=== PATIENT | female | born 1965 | race Caucasian/White ===

== ENCOUNTER 2024-12-02 17:51 | Observation (INO) | payer OTHER, SELFPAY ==
[2024-12-02] VITALS (38 sets, daily range): BP systolic 127–209; BP diastolic 84–136; PULSE 65–83; RESP 12–21; TEMP 36.1–36.6; O2SAT 84–97
--- NOTE | 2024-12-02 17:45 | RT.EKG_ITS ---
APPROVED REPORT Exam: Resting ECG Reason for Exam: Chest Pain Patient Location: E HR:73 bpm ECG Measurements Heart Rate 73 AXIS SC 137 P 22 QRSd 110 QRS 50 QT 386 T 28 QTc 426 Conclusion Sinus rhythm, rate 73 No interval abnormalities No STEMI No priors available for comparison
--- NOTE | 2024-12-02 18:13 | W.ED.GENAD ---
Discharge Plan Discharge Details Chief Complaint: Chest Pain Primary Care Provider: Unknown,Unknown ED Provider: Juan C Pizarro Home Meds and New Rx's Prescriptions: No Action atorvastatin [Lipitor] 10 mg tablet 10 mg PO DAILY lisinopril 20 mg tablet 20 mg PO DAILY omeprazole 20 mg capsule,delayed release(DR/EC) 20 mg PO DAILY fluticasone propion-salmeterol [Advair Diskus] 100-50 mcg/dose blister with device 1 inh inhalation BID albuterol sulfate [Ventolin HFA] 90 mcg/actuation HFA aerosol inhaler 1 inh inhalation ONCE hydrocodone bitartrate 10 mg capsule, oral only, ER 12hr 10 mg PO Q12H semaglutide 1 mg/dose (2 mg/1.5 mL) pen injector 1 mg subcut QWEEK HPI General Date/Time Provider Initiated Documentation: 12/02/24 18:11. HPI Narrative: 59 year-old female presents to ED today by EMS with a chief complaint of central chest pain, ongoing for a couple days that she ignored, but worse lasting 45 minutes about 60 minutes prior to arrival. Quality described as crushing heaviness, with radiation to shortness of breath, dizziness, sweating, denies cough/fever, endorses nausea for a couple days, denies syncope. Severity is described as 7/10 at onset, now about a 2-3/10. Palliating factors include 324mg ASA given in triage with improvement. Provoking factors include nothing specific- no strenuous exercise at onset. Events leading up to the incident/Associated Symptoms: Patient denies personal cardiac history, endorses FHx. Patient not anticoagulated. Related Data Home Medications ?Medication ?Instructions ?Recorded ?Confirmed albuterol sulfate 90 mcg/actuation 1 inh inhalation ONCE 09/02/24 12/02/24 aerosol inhaler (Ventolin HFA) Held on 12/02/24. Instructions: Pt Stopped/Never Started atorvastatin 10 mg tablet (Lipitor) 10 mg PO DAILY 09/02/24 12/02/24 Held on 12/02/24. Instructions: Pt Stopped/Never Started fluticasone 100 mcg-salmeterol 50 1 inh inhalation BID 09/02/24 12/02/24 mcg/dose blistr powdr for inhalation (Advair Diskus) Held on 12/02/24. Instructions: Pt Stopped/Never Started hydrocodone bitartrate 10 mg 10 mg PO Q12H 09/02/24 12/02/24 capsule, oral only, extended rel 12 hr Held on 12/02/24. Instructions: Pt Stopped/Never Started lisinopril 20 mg tablet 20 mg PO DAILY 09/02/24 12/02/24 Held on 12/02/24. Instructions: Pt Stopped/Never Started omeprazole 20 mg capsule,delayed 20 mg PO DAILY 09/02/24 12/02/24 release Held on 12/02/24. Instructions: Pt Stopped/Never Started semaglutide 1 mg/dose (2 mg/1.5 1 mg subcut QWEEK 09/02/24 12/02/24 mL) subcutaneous pen injector Held on 12/02/24. Instructions: Pt Stopped/Never Started Allergies Allergy/AdvReac Type Severity Reaction Status Date / Time No Known Allergies Allergy Unverified 12/02/24 18:11 General Stated Complaint: Chest Pain RUSLAN: 3 Review of Systems All systems reviewed & are unremarkable except as noted in HPI and below Exam Narrative Exam Narrative: GENERAL APPEARANCE: Well-nourished, non-toxic, awake and alert, atraumatic, mild acute distress. SKIN: Warm, pale, dry, intact, without rashes/lesions/ulcerations. Has a tiny folliculitis on R anterior quiles- no surrounding erythema HEAD: Normocephalic, atraumatic, normal hair distribution for gender/age. EYES: Normal conjunctiva, no exudates on lids/lashes. ENT: Nares patent, no circumoral cyanosis, no facial swelling NECK: Supple, trachea midline, painless cervical ROM. LUNGS/CHEST: Lungs CTA bilaterally- no rhonchi/rales/wheezes diffusely, non-labored respirations, normal A/P diameter, symmetrical expansion, no chest wall deformity HEART (CV/PV): Regular rate and rhythm without murmur, 2+ peripheral edema without skin changes, no JVD. ABDOMEN: Soft, non-distended, no guarding. MSK: Normal ROM, no swelling/deformity to bilateral UEs or LEs, moving all extremities without weakness, no cyanosis, spine midline without tenderness, normal curvature. NEURO: Mental Status AAOx4 - alert to person, place, time, events No facial droop, no forehead involvement. Motor: No focal weakness - strength 5/5 in bilateral UEs and LEs, proximal and distal, symmetric. Sensory: sensation intact to light touch globally. Gait NT. PSYCH: euthymic, cooperative, pleasant, appropriate speech Course Vital Signs Vital signs: Vital Signs Temperature 36.6 C 12/02/24 18:05 Pulse 80 12/02/24 18:05 Respiratory Rate 20 12/02/24 18:05 Blood Pressure 209/136 H 12/02/24 18:05 Pulse Oximetry 95 12/02/24 18:05 Temperature 36.6 C 12/02/24 18:05 Pulse 80 12/02/24 18:05 Respiratory Rate 20 12/02/24 18:05 Blood Pressure 209/136 H 12/02/24 18:05 Blood Pressure Position Sitting 12/02/24 18:05 Pulse Oximetry 95 12/02/24 18:05 Oxygen Delivery Method Room Air 12/02/24 18:05 Oxygen Flow Rate 0 12/02/24 18:05 Medical Decision Making This dictation utilizes [id number] dictation software and may contain unedited grammatical errors. 59 year-old female presents to ED today by EMS with a chief complaint of central chest pain, ongoing for a couple days that she ignored, but worse lasting 45 minutes about 60 minutes prior to arrival. Quality described as crushing heaviness, with radiation to shortness of breath, dizziness, sweating, denies cough/fever, endorses nausea for a couple days, denies syncope. Severity is described as 7/10 at onset, now about a 2-3/10. Palliating factors include 324mg ASA given in triage with improvement. Provoking factors include nothing specific- no strenuous exercise at onset. Events leading up to the incident/Associated Symptoms: Patient denies personal cardiac history, endorses FHx. Patients' medical history: Patient states hypertension, diabetes, high cholesterol, obesity. Family and social history: Endorses family history of heart attacks, lives at home independently, eats a normal diet, no exercise regimen. Pertinent exam findings / vital signs include benign cardiopulmonary exam, the profound hypertension in triage had resolved by the time of patient roomed in ED, neuro intact, benign abdomen. Differential / pathologies of concern include ACS, PE, costochondritis, pleurisy, pneumothorax, demand ischemia, pneumonia, nonpitting 2+ edema in bilateral lower extremities, no skin changes. Diagnostic studies of: -CBC, CMP, lactate, lipase, BNP, serial troponins, magnesium, D-dimer, EKG, CTA chest PE study - CBC completely unremarkable, no leukocytosis, no anemia, no left shift - Lactate negative at 1.3 - CMP shows hypokalemia of 3.2 without EKG changes - Magnesium within normal limits - BNP negative - Serial troponins stable at 6 with reliable onset - Lipase negative - D-dimer 1280, refluxing to CTA chest - CTA chest shows [ ] - EKG on arrival shows sinus rhythm at 73 bpm with P waves filled by narrow complex QRS with normal axis, good R wave progression, no ST elevations or reciprocal depressions and no T wave abnormalities, normal QTc, consistent with priors Interventions of: -324mg CH ASA, 0.4mg nitro SL PRN- 1 dose given. HEART Score: 4 - moderate - consulting with hospitalist service for admission- ECHO & Stress available tomorrow in-patient. Patient is out of many medications without a PCP and on a 90-day wait at [facility] - Discussed with Hospitalist Dr. Caballero at 2145, accepted for admission. ED Course/Assessment/Plan: 59-year-old female presents with chest pain for couple days, having severe chest pain with diaphoresis and dizziness and shortness of breath today for about 45 minutes that relieved with aspirin and nitroglycerin, she recently moved to the area and has multiple risk factors including obesity, hypercholesterolemia, hypertension, obesity, she is out of multiple medications and has no primary care established, her heart score is 4 and she can get an echocardiogram and stress test tomorrow as well as get her home medications sorted out, Dr. Caballero accepted for admission at 2200. Disposition of Chest Pain of Uncertain Etiology. Patient verbalized understanding of the plan and return to ED criteria and engaged in shared decision making. Medical Records Medical records reviewed: Yes I reviewed the patient's medical records. Imaging Data Radiologic Study: Attestation: I personally reviewed and interpreted this imaging study as follows: Imaging: CT Scan Radiologist's impression: Exam: CTA Chest With Contrast Exam date and time: 12/02/2024 7:55 PM Age: 59 years old Clinical indication: Other: Chest pain, elev d-dimer TECHNIQUE: Imaging protocol: Computed tomographic angiography of the chest with contrast. Exam focused on the arteries. 3D rendering (Not supervised by radiologist): MIP and/or 3D reconstructed images were created by the technologist. Contrast material: OMNIPQUE 350; Contrast volume: 100 ml; Contrast route: INTRAVENOUS (IV); COMPARISON: No relevant prior studies available. FINDINGS: Limitations: Extensive streak artifact, created at least in part by arm positioning. Pulmonary arteries: No pulmonary embolism identified. Aorta: No thoracic aortic aneurysm or dissection. Thyroid: Thyroid gland partially excluded from view but grossly unremarkable through its visualized portion. Lungs: Lung najera somewhat obscured by artifact from breathing motion. No gross focal pulmonary consolidation. Diffuse hazy density throughout both lungs, probably an artifactual appearance created by imaging at low lung volumes. Pleural spaces: No pleural effusion or pneumothorax. Heart: Mildly enlarged heart. Mild coronary artery calcification. Lymph nodes: Calcified left hilar lymph nodes suggesting a prior granulomatous infection. Bones/joints: Lower ribs partially excluded from view and incompletely evaluated. Otherwise, no acute fracture seen among the bones of the chest. Soft tissues: No gross soft tissue mass or fluid collection seen in the chest wall. IMPRESSION: 1. No active disease is seen in the chest. 2. Mildly enlarged heart with mild coronary artery calcification. Dictated and Authenticated by: Micky Williamson MD. Lab Data Lab results reviewed: Yes I reviewed the patient's lab results. Labs: Laboratory Tests Range/Units 12/02/24 12/02/24 12/02/24 18:58 20:10 21:56 WBC (4.4-10.8) 10^3/uL 5.45 RBC (3.93-5.22) 10^6/uL 5.18 Hgb (11.2-15.7) g/dL 14.2 Hct (36.0-46.0) % 44.5 MCV (80-95) fL 86 MCH (27.0-33.0) pg 27.4 MCHC (32.0-36.0) % 31.9 L RDW (11.7-14.6) % 13.2 Plt Count (130-400) 10^3/uL 248 MPV (8.0-11.0) fL 9.4 Immature Gran % % 0.2 Neutrophils % % 55.9 Lymphocytes % % 31.6 Monocytes % % 7.3 Eosinophils % % 4.6 Basophils % % 0.4 Nucleated RBC % (0.0-0.3) % 0.0 Absolute Neutrophils (1.2-6.7) 10^3/uL 3.05 Absolute Lymphocytes (1.2-3.4) 10^3/uL 1.72 Absolute Monocytes (0.1-0.8) 10^3/uL 0.40 Absolute Eosinophils (0.0-0.7) 10^3/uL 0.25 Absolute Basophils (0.0-0.2) 10^3/uL 0.02 D-Dimer (<500) ng/mlFEU 1280 H VBG Lactate (<or=2.0) mmol/L 1.3 Sodium (136-145) mmol/L 139 Potassium (3.5-5.1) mmol/L 3.2 L Chloride (98-107) mmol/L 101 Carbon Dioxide (21.0-32.0) mmol/L 28.5 Anion Gap (3-11) mmol/L 9.5 BUN (7-18) mg/dL 8 Creatinine (0.55-1.02) mg/dL 0.7 Est GFR (CKD-EPI 2020) (mL/min/1.73m2) 98.95 Glucose (74-106) mg/dL 155 H Calcium (8.5-10.1) mg/dL 8.8 Magnesium (1.8-2.4) mg/dL 1.9 Total Bilirubin (0.2-1.0) mg/dL 1.0 AST (15-37) U/L 42 H ALT (14-59) U/L 58 Alkaline Phosphatase (46-116) U/L 138 H Troponin I (<or=51) ng/L 6 6 Cancelled NT-Pro-B Natriuret Pep (<300) pg/mL 37 Total Protein (6.4-8.2) g/dL 8.0 Albumin (3.4-5.0) g/dL 3.4 Lipase (<78) U/L 39 PFSH Social History Smoking risk assessment performed?: No
[2024-12-02] MEDS: Aspirin 81 MG CHEW 324 MG CH (19:04)
[2024-12-02 19:07] LABS: Abs Immature Grans 0.01 10^3/uL (0.0-0.06); HCT 44.5 % (36.0-46.0); HGB 14.2 g/dL (11.2-15.7); Immature Grans % 0.2 %; MCH 27.4 pg (27.0-33.0); MCHC 31.9 % (32.0-36.0); MCV 86 fL (80-95); MPV 9.4 fL (8.0-11.0); Platelet Count 248 10^3/uL (130-400); RBC 5.18 10^6/uL (3.93-5.22); RDW 13.2 % (11.7-14.6); RDW-SD 41.1 fL; WBC 5.45 10^3/uL (4.4-10.8)
[2024-12-02] MEDS: nitroGLYcerin 0.4 MG TAB SL (19:11)
--- NOTE | 2024-12-02 19:30 | DI.CT_ITS ---
Exam(s) CT CHEST PE CTA EXAM: CT CHEST PE CTA CLINICAL HISTORY: chest pain, elev d-dimer. TECHNIQUE: Imaging Protocol: Axial CT angiography was performed with multi- slice acquisition and multi-planar and/or 3D reconstructions. Lung Computer Aided Detection (CAD) was utilized. CONTRAST MATERIAL: Intravenous: Omnipaque 350 contrast volume:100 mL COMPARISON: No exams were available for comparison FINDINGS: Tracheobronchial tree: Patent where visualized. No bronchiectasis. Pulmonary parenchyma: There are low lung volumes. There are no focal consolidations or pulmonary nodules present. Pulmonary Arteries: No evidence of filling defect to suggest pulmonary emboli. Mediastinum and Lula: No dominant adenopathy or fluid collection. The esophagus is unremarkable. There are calcified lymph nodes in the left hilum. Visualized thyroid gland: Unremarkable. Pleura: No effusion or pneumothorax. Heart: Heart size is at the upper limits of normal. Three vessel coronary artery calcification is present. No pericardial effusion. Aorta: The ascending thoracic aorta measures 4 x 3.8 cm. Atherosclerotic calcification is present. No evidence of dissection. Upper abdomen: Unremarkable. Soft tissues: Unremarkable. Bones: Within normal limits for the patient's age. IMPRESSION: 1. No evidence of pulmonary embolism, thoracic aortic dissection or aneurysm. 2. The preliminary [facility] report was reviewed. RADIATION DOSE DELIVERED: 167.46mGy.cm Total DLP DATA REPOSITORY: All CT scans at this facility are submitted to the National Radiology Data Registry (NRDR) Dose Index Registry (DIR) with the [employer] (ACR). RADIATION OPTIMIZATION: All CT scans at this facility use at least one of these dose optimization techniques: automated exposure control; mA and/or kV adjustment per patient size (includes targeted exams where dose is matched to clinical indication); or iterative reconstruction.
[2024-12-02 19:31] LABS: ALT 58 U/L (14-59); AST 42 U/L (15-37); Albumin 3.4 g/dL (3.4-5.0); Alkaline Phosphatase 138 U/L (46-116); Anion Gap 9.5 mmol/L (3-11); BUN 8 mg/dL (7-18); Bilirubin, Total 1.0 mg/dL (0.2-1.0); CO2 28.5 mmol/L (21.0-32.0); Calcium 8.8 mg/dL (8.5-10.1); Chloride 101 mmol/L (98-107); Estimated GFR 98.95 (mL/min/1.73m2); Glucose 155 mg/dL (74-106); Lipase 39 U/L (<78); Magnesium 1.9 mg/dL (1.8-2.4); NT-proBNP 37 pg/mL (<300); Potassium 3.2 mmol/L (3.5-5.1); Sodium 139 mmol/L (136-145); Total Protein 8.0 g/dL (6.4-8.2); Troponin I 6 ng/L (<or=51)
[2024-12-02 19:35] LABS: D-Dimer 1280 ng/mlFEU (<500)
[2024-12-02] MEDS: Potassium Chloride 20 MEQ TABCR 40 MEQ PO (19:42)
[2024-12-02] MEDS: Normal Saline - Diluent 50 ML VIAL IJ (19:55)
[2024-12-02] MEDS: Omnipaque 350 MG/ML 100 ML BTL IJ (19:55)
[2024-12-02] MEDS: Normal Saline Flush 10 ML SYR IVP (19:56)
[2024-12-02 20:31] LABS: Troponin I 6 ng/L (<or=51)
--- NOTE | 2024-12-02 20:38 | DI.[facility]_ITS ---
PROCEDURE INFORMATION: Exam: CTA Chest With Contrast Exam date and time: 12/02/2024 7:55 PM Age: 59 years old Clinical indication: Other: Chest pain, elev d-dimer TECHNIQUE: Imaging protocol: Computed tomographic angiography of the chest with contrast. Exam focused on the arteries. 3D rendering (Not supervised by radiologist): MIP and/or 3D reconstructed images were created by the technologist. Contrast material: OMNIPQUE 350; Contrast volume: 100 ml; Contrast route: INTRAVENOUS (IV); COMPARISON: No relevant prior studies available. FINDINGS: Limitations: Extensive streak artifact, created at least in part by arm positioning. Pulmonary arteries: No pulmonary embolism identified. Aorta: No thoracic aortic aneurysm or dissection. Thyroid: Thyroid gland partially excluded from view but grossly unremarkable through its visualized portion. Lungs: Lung najera somewhat obscured by artifact from breathing motion. No gross focal pulmonary consolidation. Diffuse hazy density throughout both lungs, probably an artifactual appearance created by imaging at low lung volumes. Pleural spaces: No pleural effusion or pneumothorax. Heart: Mildly enlarged heart. Mild coronary artery calcification. Lymph nodes: Calcified left hilar lymph nodes suggesting a prior granulomatous infection. Bones/joints: Lower ribs partially excluded from view and incompletely evaluated. Otherwise, no acute fracture seen among the bones of the chest. Soft tissues: No gross soft tissue mass or fluid collection seen in the chest wall. IMPRESSION: 1. No active disease is seen in the chest. 2. Mildly enlarged heart with mild coronary artery calcification. Dictated and Authenticated by: Micky Williamson MD. Orderin Juarez Irizarry MD
--- NOTE | 2024-12-02 22:09 | W.PM.HP.N ---
Date of service: 12/02/24 Time of Service: 22:09 Assessment and Plan Assessment and plan (1) Coronary arteriosclerosis: Status: Acute Assessment and plan: Patient does appear to have coronary artery disease but no ACS mentioned above. Will order stress test for tomorrow and will risk stratify. Restarted her home meds. Patient was on lisinopril and this has been reinitiated (2) Diabetes: Status: Chronic Assessment and plan: A1c has been ordered. Depending on the results we will determine further care. Patient could benefit from a nutrition consult while she is here. No UA was done so cannot check proteinuria will order that. (3) Dyslipidemia: Status: Acute Assessment and plan: Patient was on statin we will check a cholesterol level and will reinitiate her medications (4) CVA (cerebral vascular accident): Status: Chronic Assessment and plan: Patient does have a remote history of a CVA with deficits. Patient does not take aspirin or Plavix. Consider neurology consultation in the outpatient setting. (5) Edema: Status: Acute Assessment and plan: Lower extremity edema bilaterally lower BNP and echocardiogram. History of Present Illness History of Present Illness Chief Complaint: chest pain Narrative: This is a 59-year-old female who was recently admitted to [facility] for bilateral presents with a 3-day history of substernal chest pain that radiates to her back. Patient was rating the pain out 8 out of 10 but states the pain almost completely resolved when patient was given nitro. Patient is currently in no pain. While she was having chest pain she did report some diaphoresis as well. Patient states she has never had an echocardiogram, stress test, or cath. Patient did have a stroke approximately 40 years ago and does continue to have left upper and lower deficits. Patient does not take any blood thinners as she states my blood is thin. Patient denies any history of tobacco alcohol or drugs. She does have a history of dyslipidemia but has not been taking any of her medicines for over 90 days. Patient also has a history of asthma for which she takes inhalers. Patient is a full code. In reviewing her chart she was noted to have hypokalemia and did have an elevated D-dimer at 1280. CT of the chest did not show any pulmonary emboli. Troponins were negative x 2 today. EKG did not show any signs of AMI. PFSH All Active Problems (Updated 12/02/24 @ 22:18 by Ko Caballero MD) Edema (Acute) CVA (cerebral vascular accident) (Chronic) Dyslipidemia (Acute) Diabetes (Chronic) Coronary arteriosclerosis (Acute) Social History Smoking risk assessment performed?: No Meds Allergies and Home Medications Allergies Allergy/AdvReac Type Severity Reaction Status Date / Time No Known Allergies Allergy Unverified 12/02/24 18:11 Home Medications ?Medication ?Instructions ?Recorded ?Confirmed ?Type albuterol sulfate 90 mcg/actuation 1 inh inhalation ONCE 09/02/24 12/02/24 History aerosol inhaler (Ventolin HFA) Held on 12/02/24. Instructions: Pt Stopped/Never Started atorvastatin 10 mg tablet (Lipitor) 10 mg PO DAILY 09/02/24 12/02/24 History Held on 12/02/24. Instructions: Pt Stopped/Never Started fluticasone 100 mcg-salmeterol 50 1 inh inhalation BID 09/02/24 12/02/24 History mcg/dose blistr powdr for inhalation (Advair Diskus) Held on 12/02/24. Instructions: Pt Stopped/Never Started hydrocodone bitartrate 10 mg 10 mg PO Q12H 09/02/24 12/02/24 History capsule, oral only, extended rel 12 hr Held on 12/02/24. Instructions: Pt Stopped/Never Started lisinopril 20 mg tablet 20 mg PO DAILY 09/02/24 12/02/24 History Held on 12/02/24. Instructions: Pt Stopped/Never Started omeprazole 20 mg capsule,delayed 20 mg PO DAILY 09/02/24 12/02/24 History release Held on 12/02/24. Instructions: Pt Stopped/Never Started semaglutide 1 mg/dose (2 mg/1.5 1 mg subcut QWEEK 09/02/24 12/02/24 History mL) subcutaneous pen injector Held on 12/02/24. Instructions: Pt Stopped/Never Started Exam Narrative Exam Narrative: HEENT-normocephalic atraumatic mucous membranes moist Neck-no lymphadenopathy no JVD no thyromegaly Cardiovascular-regular rate and rhythm no murmurs gallops Lungs-clear to auscultation bilaterally no accessory muscle use Abdomen-protuberant Extremities-1+ lower extremity edema bilaterally Neurologic-cranial nerves III through XII are intact as tested with the exception of mild left facial asymmetry 0 out of 5 in the left upper and left lower EXTR extremities left upper extremity in decorticate posture Psych-alert and oriented x 3 Results Labs 12/02/24 18:58 12/02/24 18:58 Labs: Laboratory Results - last 24 hr 12/02/24 12/02/24 12/02/24 18:58 20:10 21:56 WBC 5.45 RBC 5.18 Hgb 14.2 Hct 44.5 MCV 86 MCH 27.4 MCHC 31.9 L RDW 13.2 Plt Count 248 MPV 9.4 Immature Gran % 0.2 Neutrophils % 55.9 Lymphocytes % 31.6 Monocytes % 7.3 Eosinophils % 4.6 Basophils % 0.4 Nucleated RBC % 0.0 Absolute Neutrophils 3.05 Absolute Lymphocytes 1.72 Absolute Monocytes 0.40 Absolute Eosinophils 0.25 Absolute Basophils 0.02 D-Dimer 1280 H VBG Lactate 1.3 Sodium 139 Potassium 3.2 L Chloride 101 Carbon Dioxide 28.5 Anion Gap 9.5 BUN 8 Creatinine 0.7 Est GFR (CKD-EPI 2020) 98.95 Glucose 155 H Calcium 8.8 Magnesium 1.9 Total Bilirubin 1.0 AST 42 H ALT 58 Alkaline Phosphatase 138 H Troponin I 6 6 Cancelled NT-Pro-B Natriuret Pep 37 Total Protein 8.0 Albumin 3.4 Lipase 39 Last Vital Signs Temp 36.6 C 12/02/24 18:05 Pulse 71 12/02/24 21:50 Resp 17 12/02/24 21:50 BP 161/95 H 12/02/24 21:46 Pulse Ox 97 12/02/24 21:50 Time Spent Time spent with Patient: 40-54 minutes Time was spent: preparing to see the patient(eg.review tests), obtaining and/or reviewing separately otained hiistory, ordering medications,tests, procedures, referring, communicating with other health career services manager, indepentently interpreting results, counseling the patient and care coordination
--- NOTE | 2024-12-02 22:41 | W.PC.ACHO ---
Registration Status: REG ER Primary Language: Preferred Language: ED Information & Data Chief Complaint Chest Pain 12/02/24 18:15 Triage Note 7 of 10 crushing chest pain 12/02/24 18:05 in center of chest radiating to back. Pain started 4 days ago but got substantially worse approx 1700 tonight. No cardiac Hx. Pitting bipedal edema. Most Recent Vital Signs Temperature 36.6 C 12/02/24 18:05 Pulse 71 12/02/24 21:50 Pulse 69 12/02/24 21:50 Respiratory Rate 17 12/02/24 21:50 Blood Pressure 161/95 H 12/02/24 21:46 Blood Pressure Mean 114 12/02/24 21:46 Blood Pressure Position Sitting 12/02/24 18:05 Pulse Oximetry 97 12/02/24 21:50 Oxygen Delivery Method Room Air 12/02/24 18:05 Oxygen Flow Rate 0 12/02/24 18:05 Allergies No Known Allergies Allergy (Unverified 12/02/24 18:11) Active Medications Generic Name Dose Route Start Last Admin Trade Name Jjq PRN Reason Stop Dose Admin Iohexol 100 ml 12/02/24 20:00 12/02/24 19:55 Omnipaque 350 Mg/Ml 100 Ml Btl IJ 01/01/25 23:59 100 ml DIRECTED NASIR Administration Nitroglycerin 0.4 mg 12/02/24 18:56 12/02/24 19:11 Nitroglycerin 0.4 Mg Tab SL 0.4 mg Q5 MIN PRN X3 PRN Administration Sodium Chloride 0 ml 12/02/24 19:52 12/02/24 19:56 Normal Saline Flush 10 Ml Syr IVP 10 ml PRN PRN Administration Sodium Chloride 50 ml 12/02/24 20:00 12/02/24 19:55 Normal Saline - Diluent 50 Ml Vial IJ 50 ml DIRECTED NASIR Administration IV IV Catheter Type [Right Saline Lock Antecubital] IV Catheter Gauge [Right 20 Antecubital] Diet Orders Category Date Time Status Diabetes Consistent CHO/Low Na [DIET] Nutrition 12/03/24 Breakfast Ordered Diagnostics 12/02/24 12/02/24 12/02/24 Range/Units 23:07 21:56 20:10 WBC (4.4-10.8) 10^3/uL RBC (3.93-5.22) 10^6/uL Hgb (11.2-15.7) g/dL Hct (36.0-46.0) % MCV (80-95) fL MCH (27.0-33.0) pg MCHC (32.0-36.0) % RDW (11.7-14.6) % Plt Count (130-400) 10^3/uL MPV (8.0-11.0) fL Immature Gran % % Neutrophils % % Lymphocytes % % Monocytes % % Eosinophils % % Basophils % % Nucleated RBC % (0.0-0.3) % Absolute Neutrophils (1.2-6.7) 10^3/uL Absolute Lymphocytes (1.2-3.4) 10^3/uL Absolute Monocytes (0.1-0.8) 10^3/uL Absolute Eosinophils (0.0-0.7) 10^3/uL Absolute Basophils (0.0-0.2) 10^3/uL D-Dimer (<500) ng/mlFEU VBG Lactate (<or=2.0) mmol/L Sodium (136-145) mmol/L Potassium (3.5-5.1) mmol/L Chloride (98-107) mmol/L Carbon Dioxide (21.0-32.0) mmol/L Anion Gap (3-11) mmol/L BUN (7-18) mg/dL Creatinine (0.55-1.02) mg/dL Est GFR (CKD-EPI 2020) (mL/min/1.73m2) Glucose (74-106) mg/dL Calcium (8.5-10.1) mg/dL Magnesium (1.8-2.4) mg/dL Total Bilirubin (0.2-1.0) mg/dL AST (15-37) U/L ALT (14-59) U/L Alkaline Phosphatase (46-116) U/L Troponin I Pending Cancelled 6 (<or=51) ng/L NT-Pro-B Natriuret Pep (<300) pg/mL Total Protein (6.4-8.2) g/dL Albumin (3.4-5.0) g/dL Lipase (<78) U/L 12/02/24 Range/Units 18:58 WBC 5.45 (4.4-10.8) 10^3/uL RBC 5.18 (3.93-5.22) 10^6/uL Hgb 14.2 (11.2-15.7) g/dL Hct 44.5 (36.0-46.0) % MCV 86 (80-95) fL MCH 27.4 (27.0-33.0) pg MCHC 31.9 L (32.0-36.0) % RDW 13.2 (11.7-14.6) % Plt Count 248 (130-400) 10^3/uL MPV 9.4 (8.0-11.0) fL Immature Gran % 0.2 % Neutrophils % 55.9 % Lymphocytes % 31.6 % Monocytes % 7.3 % Eosinophils % 4.6 % Basophils % 0.4 % Nucleated RBC % 0.0 (0.0-0.3) % Absolute Neutrophils 3.05 (1.2-6.7) 10^3/uL Absolute Lymphocytes 1.72 (1.2-3.4) 10^3/uL Absolute Monocytes 0.40 (0.1-0.8) 10^3/uL Absolute Eosinophils 0.25 (0.0-0.7) 10^3/uL Absolute Basophils 0.02 (0.0-0.2) 10^3/uL D-Dimer 1280 H (<500) ng/mlFEU VBG Lactate 1.3 (<or=2.0) mmol/L Sodium 139 (136-145) mmol/L Potassium 3.2 L (3.5-5.1) mmol/L Chloride 101 (98-107) mmol/L Carbon Dioxide 28.5 (21.0-32.0) mmol/L Anion Gap 9.5 (3-11) mmol/L BUN 8 (7-18) mg/dL Creatinine 0.7 (0.55-1.02) mg/dL Est GFR (CKD-EPI 2020) 98.95 (mL/min/1.73m2) Glucose 155 H (74-106) mg/dL Calcium 8.8 (8.5-10.1) mg/dL Magnesium 1.9 (1.8-2.4) mg/dL Total Bilirubin 1.0 (0.2-1.0) mg/dL AST 42 H (15-37) U/L ALT 58 (14-59) U/L Alkaline Phosphatase 138 H (46-116) U/L Troponin I 6 (<or=51) ng/L NT-Pro-B Natriuret Pep 37 (<300) pg/mL Total Protein 8.0 (6.4-8.2) g/dL Albumin 3.4 (3.4-5.0) g/dL Lipase 39 (<78) U/L Intake and Output - 24 Hour Total 12/02/24 17:51 thru 12/02/24 18:05 Weight 113.398 kg Falls Risk Assessment History of Falls No History 12/02/24 18:13 Contributing Factors No Factors 12/02/24 18:13 Ambulatory Aids Independent 12/02/24 18:13 Tubes/Lines None 12/02/24 18:13 Gait Evaluation No gait disturbance 12/02/24 18:13 Cognition No cognitive impairment 12/02/24 18:13 Fall Total Score 0 12/02/24 18:13 Level of Risk Standard/Low Risk 12/02/24 18:13 Problems Edema (Acute) CVA (cerebral vascular accident) (Chronic) Dyslipidemia (Acute) Diabetes (Chronic) Coronary arteriosclerosis (Acute) v v v v v v v v v Sending and/or Receiving Nurses: Please use comment section below to note any information pertinent to the patient hand-off not included above. Information / Comments: No further questions. Report received from: SELAM Alvarado
--- NOTE | 2024-12-03 | DI.NM_ITS ---
APPROVED REPORT Exam: Pharmacologic Patient Location: In-Patient Room/Bed: 215 Stress Nurse: Yamilka Murillo RN Ordering Provider:TABATHA MADRIGAL, Contact Number: BMI: 40.26 Baseline Rhythm: Sinus Rhythm. Comment: Rare PAC. Indications: Chest Pain. Medical History Medical History: Chest Pain; Negative Troponins x2; Edema; CAD; CVA; Diabetes Mellitus Type 2; HLD; HTN. Cardiac Medications: Atorvastatin; Lisinopril; Omeprazole; Albuterol; Hydrocodone Bitartrate; Semaglutide. Allergies: None. Cardiac Risk Factors: Family Hx; HLD; HTN; CVD; Diabetes Mellitus Type 2; COPD; Obesity. Previous Cardiac Procedures: None. Pretest Chest Pain Characteristics: Pt. c/o 10/10, constant, dull, pressure in her left neck and jaw. Pt. also c/o a headache. Pt. denies any radiation of the pain. Pt. denies any nausea/vomiting. Exercise History: Sedentary. Physical Disabilities: Previous CVA w/ significant left sided deficit. Lung Sounds: Clear bilaterally throughout, anterior and posterior. Heart Sounds: S1 and S2 auscultated. Stress Test Details Test: Pharmacologic stress testing performed using 0.4 mg of regadenoson per 5 mL given IV over 10 seconds. Reason for pharmacologic stress test: physical limitation. Nuclear Acquisition: Rest Tc-99m/Stress Tc-99m 1 day Rest Isotope: Tc-99m Sestamibi. Dose: 12.0 Date: 12/03/2024 Injection Time: 1130 Stress Isotope: Tc-99m Sestamibi. Dose: 35.1 Date: 12/03/2024 Injection Time: 1330 HR Resting HR Supine: 72 bpm Max Heart Rate (APMHR): 160 bpm Target HR (85% APMHR): 136 bpm Max HR Achieved: 108 bpm % of APMHR: 68 Recovery HR: 88 bpm BP Resting BP Supine: 154/102 mmHg Max BP: 166/98 mmHg Recovery BP: 152/98 mmHg ECG Resting ECG: Sinus Rhythm. Ectopy: Rare PAC. Stress ECG: Sinus Tachycardia. ST Change: Nondiagnostic low heart rate. Arrhythmia: None. Recovery ECG: Sinus Rhythm. Recovery ST Change: Nondiagnostic low heart rate. Recovery Arrhythmia: None. Clinical Stress Symptoms: Pt. c/o 10/10, constant, dull, pressure in her left neck and jaw. Pt. also c/o a headache. Pt. denies any radiation of the pain. Pt. denies any nausea/vomiting. Angina Score: None Rate Pressure Product: [id number] Stress ECG Conclusion 1. Resting electrocardiogram was normal 2. Patient underwent testing using pharmacologic stress with regadenoson 3. Peak heart rate achieved was 68% of maximal predicted for age 4. Electrocardiographic portion of the test was nondiagnostic 5. See MPI report Critical Notification Critical Value: Yes Physician Notified Date: 12/03/2024 Time: 1322 Physician Name: Vandana Jack MD Response Time: 12 minutes Stress Test Summary STAGE HR BP SpO2 Symptoms NOTES Supine 72 154/102 92 Pt. c/o 10/10, constant, dull, pressure in her left neck and jaw. Pt. also c/o a headache. Pt. denies any radiation of the pain. Pt. denies any nausea/vomiting. 1 min post Lexiscan injection 97 166/98 97 Pt. c/o feeling lightheaded and having mild SOB immediately post lexiscan injection. 3 min post Lexiscan injection 92 160/96 97 Pt. states that all lightheadedness and SOB has resolved. 6 min post Lexiscan injection 88 152/98 92 Pt. performed a NM MPI stress test using the laying lexiscan protocol. Laying lexiscan protocol used due to physical limitation (pt. had a previous CVA w/ significant left sided deficit). Pt. c/o 10/10, constant, dull, pressure in her left neck and jaw. Pt. also c/o a headache. Pt. denies any radiation of the pain. Pt. denies any nausea/vomiting. Dr. Jack was notified at 1322 on 12/03/24. Dr. Jack responded twelve minutes later and stated that the EKG was normal. Pt. c/o feeling lightheaded and having mild SOB immediately post lexiscan injection. Pt. states that all lightheadedness and SOB has resolved by 3 minutes post lexiscan injection. Nursing staff assisted pt. in transferring from the stretch er to the wheelchair to go back to . Pt. was conversing pleasantly with nursing staff upon leaving the Stress Lab. Pt. left ambulatory in no apparent distress. MPI Conclusion Myocardial perfusion is normal. There is no ischemia or evidence of prior infarction Ejection fraction is 68% with normal wall motion
[2024-12-03] MEDS: Enoxaparin 40 MG/0.4 ML SYR SC (00:07)
[2024-12-03] MEDS: Acetaminophen 325 MG TAB PO (00:08)
[2024-12-03] MEDS: Normal Saline Flush 10 ML SYR IVP (00:08)
[2024-12-03 00:16] LABS: Troponin I 9 ng/L (<or=51)
[2024-12-03 01:19] LABS: Troponin I 10 ng/L (<or=51)
[2024-12-03 01:37] LABS: Glucose Negative (Negative)
[2024-12-03 01:59] LABS: C & S Indicated? Yes; RBC 0-2 HPF (0-2); WBC 20-50 HPF (0-5)
[2024-12-03 07:30] VITALS: BP 116/90; PULSE 80; RESP 16; TEMP 36.9; O2SAT 95
[2024-12-03 07:32] LABS: HCT 39.3 % (36.0-46.0); HGB 12.5 g/dL (11.2-15.7); MCH 27.4 pg (27.0-33.0); MCHC 31.8 % (32.0-36.0); MCV 86 fL (80-95); MPV 10.5 fL (8.0-11.0); Platelet Count 128 10^3/uL (130-400); RBC 4.57 10^6/uL (3.93-5.22); RDW 13.3 % (11.7-14.6); RDW-SD 41.6 fL; WBC 5.17 10^3/uL (4.4-10.8)
[2024-12-03 07:45] LABS: Hemoglobin A1C 10.3 % (<5.7)
[2024-12-03 07:52] LABS: Cholesterol 166 mg/dL (<200)
[2024-12-03 08:04] LABS: ALT 48 U/L (14-59); AST 31 U/L (15-37); Albumin 2.8 g/dL (3.4-5.0); Alkaline Phosphatase 118 U/L (46-116); Anion Gap 9.0 mmol/L (3-11); BUN 9 mg/dL (7-18); Bilirubin, Total 0.7 mg/dL (0.2-1.0); CO2 26.0 mmol/L (21.0-32.0); Calcium 8.6 mg/dL (8.5-10.1); Chloride 102 mmol/L (98-107); Estimated GFR 84.30 (mL/min/1.73m2); Glucose 254 mg/dL (74-106); NT-proBNP 49 pg/mL (<300); Potassium 3.5 mmol/L (3.5-5.1); Sodium 137 mmol/L (136-145); Total Protein 6.5 g/dL (6.4-8.2); Troponin I 11 ng/L (<or=51)
--- NOTE | 2024-12-03 08:33 | INITIAL_ITS ---
Date of service: 12/03/24 Time of Service: 08:33 Care Management Initial Assmt Initial Assessment Reason for Hospitalization: chest pain Functional Status/Living Situation Patient Presentation: Anita was sitting on the side of the bed visiting with her daughter Carmencita when CM met with her. She was pleasant in interaction and agreeable to conversation. Anita was admitted with chest pain. She underwent an appropriate cardiac workup including EKG, Echocardiogram ans stress test and no concerning findings were identified. Her symptoms resolved and she was ready for discharge this afternoon. Anita has recently relocated from out of state to her daughters home in [place]. They live with Carmencita's and children. Anita had a CVA about 40 years ago leaving her with left upper and lower extremity deficits. She is disabled and has not worked in many years. Anita does not yet have a PCP in the area. She submitted an application to [facility] to establish care but has not gotten an appointment yet. Fortunately the [employer] international sales representative yesterday is a [facility] provider so she will be seen by someone in the practice of her choice. Anita requires some assistance with ADLs and IADLs which her family provides. Both Anita and Carmencita expressed interestin a referral to [facility] [place] [facility]; the referral was sent by KALEY. Town of Residence: [place] Resides with: Child (daughter and her family) Significant Other/Family: Local Employment Status: Disabled Instrumental Activities of Daily Living (ADLs): Requires support Medications Medication Management: No Issues/Barriers identified Advance Directives Advance Directives: Do you have an Advance Directive: N Today, 08:11 AD On File at [facility]: N 12/02/24, 17:52 Date Asked 12/02/24 12/02/24, 17:52 AD Date Reviewed COLST On File at [facility] COLST Date Scanned Code Status Resuscitation Status Full Code Portal Pt does not currently have a portal and education provided: Yes Insurance Coverage/Financial Issues Insurance: [facility] Care Team Visit Care Team Role Provider Type Heather Myers APRN MD [facility] STAFF PHYSICIAN Unknown Unknown Primary Care Provider STAFF PHYSICIAN InPatient Sergo Prieto Other Providers OTHER [facility] Provider PHYSICIANS [employer] Ko Caballero MD Admit Provider [facility] STAFF PHYSICIAN Attending Provider Discharge Potential Discharge Needs: PCP F/U Appt Anticipated Barriers to Discharge: None Identified Patient/Family Education Needs: Review discharge instructions, discuss Ask Me Three Transportation: Private vehicle Plan: Anita will transport home with her daughter Carmencita. She will follow up with her [facility] appointment and plan of care. No new services needed at this time. Social Determinants of Health Screening Will the Patient Participate in the Screening?: Declined to provide Comments: Patient declined at this moment. PFSH All Active Problems (Updated 12/02/24 @ 22:18 by Ko Caballero MD) Edema (Acute) CVA (cerebral vascular accident) (Chronic) Dyslipidemia (Acute) Diabetes (Chronic) Coronary arteriosclerosis (Acute) Social History Smoking risk assessment performed?: No Housing: house
--- NOTE | 2024-12-03 09:30 | DI.US_ITS ---
APPROVED REPORT EXAM: Comprehensive 2D, Doppler, and color-flow Echocardiogram Patient Location: In-Patient Room/Bed: 215 Compressor Station Operator: Kristi Will RDCS (AE) Indications: BLE, Chest pain, CAD Other Information Study Quality: Fair. Technically limited study due to body habitus. Conclusion Normal left ventricular wall thickness and chamber size. EF is 60%. Wall motion is normal Normal right ventricular size and function Both atria are normal in size There is no significant valvular disease Ascending aorta measures 3.55 cm Wall motion Left Ventricle The left ventricle is normal size. The left ventricular systolic function is normal. The left ventricular ejection fraction is within the normal range. There is normal left ventricular wall thickness. There is normal LV segmental wall motion. There is no ventricular septal defect visualized. LVEF is 60%. Right Ventricle The right ventricle is normal size. The right ventricular systolic function is normal. Atria The left atrium size is normal. The right atrium size is normal. The interatrial septum is intact with no evidence for an atrial septal defect. Aortic Valve The aortic valve is normal in structure. Aortic valve is trileaflet. There is no aortic valvular stenosis. No aortic regurgitation is present. Mitral Valve Mild mitral annular calcification. No evidence of mitral valve stenosis. Trace mitral regurgitation. Tricuspid Valve The tricuspid valve is normal in structure. There is no tricuspid valve stenosis. Trace tricuspid regurgitation. Unable to assess PA pressure. Pulmonic Valve The pulmonary valve is normal in structure. There is no pulmonic valvular stenosis. There is no pulmonic valvular regurgitation. Great Vessels The aortic root is normal in size. The ascending aorta is mildly dilated. Aortic arch is normal in caliber. IVC is normal in size and collapses >50% with inspiration. Pericardium There is no pericardial effusion. 2D Dimensions IVSD d PLAX 0.90 cm F: 0.6-1.0 Ao Root d 3.19 cm F: 2.7 - 3.3 LVPW d PLAX 0.94 cm F: 0.6 - 1.0 Ao Asc Diam d 3.55 cm F: 2.3 - 3.1 LVID d PLAX 4.32 cm F: 3.8 - 5.2 LVDs 3.00 cm F: 2.2 - 3.5 LV EF Teichholz 59.8 % FS 31.56 % LV EDV (Teich) 83.9 mL LV ESV (Teich) 33.7 mL M-Mode TAPSE 2.05 cm (M/F) >1.7 Auto EF LV EDV A4C 90.9 mL LV EDV A2C 88.2 mL LV EDV BP 88.5 mL LV ESV A4C 38.1 mL LV ESV A2C 34.9 mL LV ESV BP 36.1 mL LVEF(%) A4C 58.1 % LVEF(%) A2C 60.5 % LVEF(%) BP 59.2 % LV SV A4C 52.8 ml LV SV A2C 53.3 ml LV SV BP 52.5 ml LV CO A4C 3.7 L/min LV CO A2C 4.0 L/min LV CO BP 3.8 L/min HR A4C 70.04 BPM HR A2C 74.23 BPM LV EDV Index (BP) LA Volume LA Length A4C 5.0 cm LA Length A2C 5.1 cm LA Area A4C s 14.70 cm2 LA Area A2C s 13.21 cm2 LA Vol A4C A-L 36.63 mL LA Vol A2C A-L 29.25 mL LA Vol Biplane A-L 32.9 mL LA Vol/BSA A4C A-L LA Vol/BSA A2C A-L LA Vol/BSA BP A-L 15.3 mL/m2 LA Vol A4C MOD 34.0 mL LA Vol A2C MOD 27.1 mL LA Vol BP MOD 30.5 mL RA Volume RA Area A4C 12.2 cm2 RA ESV A4C (A-L) 29.1mL RA Vol/BSA A4C A-L RA Length A4C 4.3 cm RA ESV A4C (MOD) 27.7mL LV Diastology MV E' medial 0.083 (>0.07 m/s) MV E Vmax 0.84 (0.4-1.3 m/s) MV E/E' MED 10.15 (<14) MV A Vmax 0.85 (0.4-1.3 m/s) MV E' lateral 0.099 (>0.1 m/s) E/A Ratio 1.0 MV E/E' LAT 8.50 (<14) MV E' Average 0.091 m/s MV E/E'(average) 9.26 Aortic Valve AoV Vmax 1.47 m/s LVOT Vmax 1.30 m/s AoV Peak Grad 8.7 mmHg LVOT Peak Grad 6.7 mmHg AoV Area (Vmax) 2.84 cm2 LVOT VTI 0.263 m AoV VTI 0.285 m LVOT Mean Grad 3.1 mmHg AoV Mean Tucker. 0.96 m/s LVOT SV 84.75 mL AoV Mean Grad 4.3 mmHg LVOT Diam s 2.00 cm AoV Area (VTI) 2.97 cm2 AV Regurg Peak Gr. 8.67 mmHg Velocity Ratio 0.88 Mitral Valve MV DT 244 (160-240 msec) MV Vmax TIPS 0.81 m/s MV Mean Grad 1.2 (<2mmHg) MV VTI 0.252 m Pulmonary Valve PV Vmax 0.93 (0.5-1.5 m/s) RVOT Vmax 0.83 m/s PV Peak Grad 3.5 mmHg RVOT Peak Gr. 2.8 mmHg PV Mean Tucker 0.67 m/s RVOT VTI 0.172 m PV Mean Grad 2.1 mmHg RVOT Mean Gr. 1.6 mmHg Tricuspid Valve TV S' 0.12 m/s
--- NOTE | 2024-12-03 10:00 | DI.US_ITS ---
Exam(s) US EXTREMITY VENOUS BI EXAM: US EXTREMITY VENOUS BI CLINICAL HISTORY: elevated dimer. TECHNIQUE: Bilateral lower extremity venous ultrasound performed using grayscale, color-flow, and spectral Doppler analysis. COMPARISON: No exams were available for comparison FINDINGS: The right common femoral, femoral and popliteal veins demonstrate normal compressibility, augmentation, and color Doppler. The posterior tibial veins are patent. The saphenofemoral junction is unremarkable. There is a 5.9 x 1.3 x 4.7 cm right popliteal cyst. There is mild edema seen in the soft tissues of the lower extremity. The left common femoral, femoral and popliteal veins demonstrate normal compressibility, augmentation, and color Doppler. The posterior tibial veins are patent. The saphenofemoral junction is unremarkable. There is no evidence of a Fishman's cyst. There is mild edema seen in the soft tissues of the lower extremity. IMPRESSION: 1. No evidence of a right lower extremity DVT. 2. No evidence of a left lower extremity DVT. 3. Right popliteal cyst. DATA REPOSITORY:
[2024-12-03] MEDS: Regadenoson 0.4 MG/5 ML SYR IVP (13:29)
--- NOTE | 2024-12-03 13:52 | CHAPLAIN ---
Anita was in bed when I visited. Her daughter was with her. I explained my role and offered support. Anita was quiet and pleasant and didn't seem interested in further conversation.
[2024-12-03 14:04] VITALS: BP 143/90; PULSE 80; RESP 16; TEMP 37; O2SAT 96
--- NOTE | 2024-12-03 14:25 | PGE_ITS ---
Date of Service Date of service: 12/03/24 Time of Service: : Objective Last Vital Signs Temp 37 C 12/03/24 14:04 Pulse 80 12/03/24 14:04 Resp 16 12/03/24 14:04 BP 143/90 H 12/03/24 14:04 Pulse Ox 96 12/03/24 14:04 Laboratory Results - last 24 hr 12/02/24 12/02/24 12/02/24 18:58 20:10 21:56 WBC 5.45 RBC 5.18 Hgb 14.2 Hct 44.5 MCV 86 MCH 27.4 MCHC 31.9 L RDW 13.2 Plt Count 248 MPV 9.4 Immature Gran % 0.2 Neutrophils % 55.9 Lymphocytes % 31.6 Monocytes % 7.3 Eosinophils % 4.6 Basophils % 0.4 Nucleated RBC % 0.0 Absolute Neutrophils 3.05 Absolute Lymphocytes 1.72 Absolute Monocytes 0.40 Absolute Eosinophils 0.25 Absolute Basophils 0.02 D-Dimer 1280 H VBG Lactate 1.3 Sodium 139 Potassium 3.2 L Chloride 101 Carbon Dioxide 28.5 Anion Gap 9.5 BUN 8 Creatinine 0.7 Est GFR (CKD-EPI 2020) 98.95 Glucose 155 H Hemoglobin A1c Calcium 8.8 Magnesium 1.9 Total Bilirubin 1.0 AST 42 H ALT 58 Alkaline Phosphatase 138 H Troponin I 6 6 Cancelled NT-Pro-B Natriuret Pep 37 Total Protein 8.0 Albumin 3.4 Total Cholesterol Lipase 39 Urine Color Urine Clarity Urine pH Ur Specific Calvert Urine Protein Urine Ketones Urine Blood Urine Nitrite Urine Bilirubin Urine Urobilinogen Ur Leukocyte Esterase Urine RBC Urine WBC Ur Epithelial Cells Urine Crystals Urine Bacteria Urine Casts Urine Mucus Ur Culture Indicated? Urine Glucose 12/02/24 12/03/24 12/03/24 23:50 00:50 01:00 WBC RBC Hgb Hct MCV MCH MCHC RDW Plt Count MPV Immature Gran % Neutrophils % Lymphocytes % Monocytes % Eosinophils % Basophils % Nucleated RBC % Absolute Neutrophils Absolute Lymphocytes Absolute Monocytes Absolute Eosinophils Absolute Basophils D-Dimer VBG Lactate Sodium Potassium Chloride Carbon Dioxide Anion Gap BUN Creatinine Est GFR (CKD-EPI 2020) Glucose Hemoglobin A1c Calcium Magnesium Total Bilirubin AST ALT Alkaline Phosphatase Troponin I 9 10 NT-Pro-B Natriuret Pep Total Protein Albumin Total Cholesterol Lipase Urine Color Yellow Urine Clarity Cloudy Urine pH 6.0 Ur Specific Calvert 1.015 Urine Protein Negative Urine Ketones Negative Urine Blood Trace-intact H Urine Nitrite Negative Urine Bilirubin Negative Urine Urobilinogen 0.2 Ur Leukocyte Esterase Moderate H Urine RBC 0-2 Urine WBC 20-50 H Ur Epithelial Cells Few Urine Crystals Negative Urine Bacteria Packed Urine Casts Negative Urine Mucus Moderate Ur Culture Indicated? Yes Urine Glucose Negative 12/03/24 06:35 WBC 5.17 RBC 4.57 Hgb 12.5 Hct 39.3 MCV 86 MCH 27.4 MCHC 31.8 L RDW 13.3 Plt Count 128 L MPV 10.5 Immature Gran % Neutrophils % Lymphocytes % Monocytes % Eosinophils % Basophils % Nucleated RBC % Absolute Neutrophils Absolute Lymphocytes Absolute Monocytes Absolute Eosinophils Absolute Basophils D-Dimer VBG Lactate Sodium 137 Potassium 3.5 Chloride 102 Carbon Dioxide 26.0 Anion Gap 9.0 BUN 9 Creatinine 0.8 Est GFR (CKD-EPI 2020) 84.30 Glucose 254 H Hemoglobin A1c 10.3 H Calcium 8.6 Magnesium Total Bilirubin 0.7 AST 31 ALT 48 Alkaline Phosphatase 118 H Troponin I 11 NT-Pro-B Natriuret Pep 49 Total Protein 6.5 Albumin 2.8 L Total Cholesterol 166 Lipase Urine Color Urine Clarity Urine pH Ur Specific Calvert Urine Protein Urine Ketones Urine Blood Urine Nitrite Urine Bilirubin Urine Urobilinogen Ur Leukocyte Esterase Urine RBC Urine WBC Ur Epithelial Cells Urine Crystals Urine Bacteria Urine Casts Urine Mucus Ur Culture Indicated? Urine Glucose
--- NOTE | 2024-12-03 15:13 | PHA.REVIEW2 ---
Pharmacy Admission Review Admission Clinical Review Admission Pharmacy Review: Edema (Acute) Dyslipidemia (Acute) Coronary arteriosclerosis (Acute) No Known Allergies Allergy (Unverified 12/02/24 18:11) Resuscitation Status Full Code Height 5 ft 5 in Weight 110.1 kg Comments Comments/Follow Ups: Urine culture pending Pharmacy Admission Review Renal Dosing Renal Dosing: BUN 9 mg/dL (7-18) 12/03/24 06:35 Creatinine 0.8 mg/dL (0.55-1.02) 12/03/24 06:35 Medications needing adjustments: Reviewed (CrCl 73.89 mL/min) List of meds needing interventions: Current medications are okay Anticoagulation Anticoagulation: Hgb 12.5 g/dL (11.2-15.7) 12/03/24 06:35 Hct 39.3 % (36.0-46.0) 12/03/24 06:35 Plt Count 128 10^3/uL (130-400) L 12/03/24 06:35 Creatinine 0.8 mg/dL (0.55-1.02) 12/03/24 06:35 DVT Prophylaxis: Intervened (changed from DAILY to BID due to BMI of 40) Medications: Enoxaparin (40mg BID) Relevant Labs Relevant Labs: Sodium 137 mmol/L (136-145) 12/03/24 06:35 Potassium 3.5 mmol/L (3.5-5.1) 12/03/24 06:35 Chloride 102 mmol/L (98-107) 12/03/24 06:35 Magnesium 1.9 mg/dL (1.8-2.4) 12/02/24 18:58 Electrolytes, C-Reactive P, ESR: Reviewed DM Control DM Control: Glucose 254 mg/dL (74-106) H 12/03/24 06:35 Hemoglobin A1c 10.3 % (<5.7) H 12/03/24 06:35 Finger Stick Blood Glucose 169 1359 Finger Stick Blood Glucose 169 1359 DM Control: Reviewed Insulin Dosing, Diabetic Medication: No orders as of right now - provider aware of recent A1c Cardiac Review Cardiac Review: Troponin I 11 ng/L (<or=51) 12/03/24 06:35 NT-Pro-B Natriuret Pep 49 pg/mL (<300) 12/03/24 06:35 BP, HR, EF%: Reviewed (BP 143/90, HR WNL) List meds needing interventions: Has order for lisinopril 20mg daily QTc Review QTc: Reviewed (426 from 12/02/24) IV to PO Switch IV Medications: Reviewed Home Meds Home Med List reviewed: Intervened Relevent Home Meds Not ordered & why?: Advair (substituted with Symbicort per pharmacy protocol), hydrocodone and Ozempic All listed as not taking on home med list Canceled order for Ozempic given that patient reports she is not taking - provider aware Current Meds Current Medication Order Review: Intervened Comments: Changed albuterol order from ONCE NASIR to Q6H PRN - provider aware Comments Comments/Follow Ups: Urine culture pending
--- NOTE | 2024-12-03 15:19 | DSE_ITS ---
Date of service: 12/03/24 Time of Service: 15:19 DS: Diagnosis Discharge Diagnosis (1) Coronary arteriosclerosis: Status: Acute (2) Diabetes: Status: Chronic (3) Dyslipidemia: Status: Acute (4) CVA (cerebral vascular accident): Status: Chronic (5) Edema: Status: Acute Discharge Plan Disposition Patient Disposition: Home Condition: Improving Discharge Details Reason For Visit: Chest Pain Admit Date/Time: 12/02/24 22:05 Admit Provider: Ko Caballero Attending Provider: Ko Caballero Primary Care Provider: Unknown,Unknown Hospital Course Hospital Course: 59 years old female patient who recently moved in the area to live with her family presented to the ED by EMS on 12/02/2024 for evaluation of central chest pain starting a couple of days prior to presentation; episode reported to have lasted 45-60 minutes prior to arrival. Workup in the ED. ASA 324 mg given in ED. Reported past medical history of hypertension, diabetes, high cholesterol, obesity, previous stroke. Troponins were negative, EKG w/o signs of coronary occlusion, labs were unremarkable except for D-dimer 1280 , ultrasound negative for lower extremity DVT. Well's criteria negative at 0.0 points. The patient was admitted to the medical surgical floor by the hospitalist team for echocardiogram and MPI stress test. Echocardiogram showed LVEF of 60%, normal right ventricualr size and function and without actionable findings otherwise. MPI stress test was normal. The patient is hemodynamically stable without chest pain or electrolyte imbalances and will be discharged home with f/u with outpatient provider within 7- 10 days of discharge. Medicines administered while in the hospital were reordered as family mentioned that they could not get refills, metformin ordered based on patient's reports of taking it at home; A1C was 10.3 and patient reporting stopping GLP-1 due to stomach upset. Recommendation for neurology referral for history of stroke. [facility] Nitrofurantoin reportedly stopped X1 month reordered now to treat UTI as per UA. Discussed with Dr. Lancaster Home Meds and New Rx's Prescriptions: New lisinopril 20 mg Tablet 20 mg PO DAILY Qty: 30 0RF budesonide-formoterol [Symbicort] 80-4.5 mcg/actuation Hfa Aerosol Inhaler 2 puff inhalation BID Qty: 10.2 0RF metformin 500 mg tablet 500 mg PO BIDWMEAL Qty: 30 0RF nitrofurantoin macrocrystal 100 mg capsule 100 mg PO Q12H Qty: 14 0RF Rx Instructions: must administer with a meal/food atorvastatin [Lipitor] 40 mg tablet 40 mg PO QPM Qty: 30 0RF pantoprazole 40 mg tablet,delayed release (DR/EC) 40 mg PO DAILY Qty: 30 0RF No Action atorvastatin [Lipitor] 10 mg tablet 10 mg PO DAILY lisinopril 20 mg tablet 20 mg PO DAILY omeprazole 20 mg capsule,delayed release(DR/EC) 20 mg PO DAILY fluticasone propion-salmeterol [Advair Diskus] 100-50 mcg/dose blister with device 1 inh inhalation BID albuterol sulfate [Ventolin HFA] 90 mcg/actuation HFA aerosol inhaler 1 inh inhalation ONCE hydrocodone bitartrate 10 mg capsule, oral only, ER 12hr 10 mg PO Q12H semaglutide 1 mg/dose (2 mg/1.5 mL) pen injector 1 mg subcut QWEEK Discharge Instructions Stand Alone Forms: Nursing Discharge Form Referrals: Unknown,Unknown [Primary Care Provider, Unknown] Referral Note: Follow up with outpatient provider within 7 days of discharge Activity:: Activity as Tolerated Equipment/Supplies:: No Equipment Needed Diet:: heart healthy daibetic Discharge Orders Discharge Orders: Discharge Order (Routine); Ordered 12/03/24 Ordered By: Heather Myers Other Ambulatory Orders: Urinalysis w/Reflex (Routine) Timeframe: 20241209 Facility: [facility] - Location: Laboratory Outpatient - [facility] Ordered By: Heather Myers DS: Summary Time Spent with Patient providing and/or coordinating discharge services: Greater than 30 minutes Status at Discharge Functional status at discharge: independent ambulation Overall status at discharge: patient is back to baseline Mental Status: mental status grossly normal Speech and Movement: speech and movement normal Mood: congruent mood Affect: normal affect Exam Narrative Exam Narrative: 59 years old female patient with morbid obesity looking older than stated age, she is alert oriented x 3, left side upper extremity paralysis due to previous stroke otherwise no new focal neurological deficit, speaks full sentences unlabored breathing clear lungs, S1-S2 no murmur, abdomen is large nondistended soft nontender, no CVA tenderness ongoing bilateral lower extremity edema has refused compression stockings recommended by outpatient provider in the recent past Psych Mental Status: mental status grossly normal Speech and Movement: speech and movement normal Mood: congruent mood Affect: normal affect DS: Data Vitals/I&O Vitals and I&O: Vital Signs Temperature 37 C 12/03/24 14:04 Temperature Source Temporal Artery Scan 12/03/24 14:04 Pulse 80 12/03/24 14:04 Pulse Rhythm Regular 12/02/24 23:17 Pulse 69 12/02/24 22:32 Respiratory Rate 16 12/03/24 14:04 Respiratory Effort Normal, Non-Labored 12/02/24 23:17 Respiratory Depth Normal 12/02/24 23:17 Blood Pressure 143/90 H 12/03/24 14:04 Blood Pressure Mean 107 12/03/24 14:04 Blood Pressure Position Sitting 12/02/24 18:05 Pulse Oximetry 96 12/03/24 14:04 Oxygen Delivery Method Room Air 12/03/24 14:04 Oxygen Flow Rate 0 12/03/24 14:04 Pain Level 10 12/03/24 14:04 Intake & Output 12/02/24 12/03/24 12/03/24 23:59 11:59 23:59 Intake Total 200 / 200 10 Output Total 500 / 500 Balance 200 / 200 -490 / -490 Weight 110.1 kg Intake: IV Oral 200 / 200 Output: Urine 500 / 500 Other: Urine Color Yellow Urine Appearance Cloudy Urine Odor Strong Comment pt incontinent on brief. Data Completed and Pending Pending Labs at Discharge: 12/02/24 12/02/24 12/02/24 18:58 20:10 21:56 WBC 5.45 RBC 5.18 Hgb 14.2 Hct 44.5 MCV 86 MCH 27.4 MCHC 31.9 L RDW 13.2 Plt Count 248 MPV 9.4 Immature Gran % 0.2 Neutrophils % 55.9 Lymphocytes % 31.6 Monocytes % 7.3 Eosinophils % 4.6 Basophils % 0.4 Nucleated RBC % 0.0 Absolute Neutrophils 3.05 Absolute Lymphocytes 1.72 Absolute Monocytes 0.40 Absolute Eosinophils 0.25 Absolute Basophils 0.02 D-Dimer 1280 H VBG Lactate 1.3 Sodium 139 Potassium 3.2 L Chloride 101 Carbon Dioxide 28.5 Anion Gap 9.5 BUN 8 Creatinine 0.7 Est GFR (CKD-EPI 2020) 98.95 Glucose 155 H Hemoglobin A1c Calcium 8.8 Magnesium 1.9 Total Bilirubin 1.0 AST 42 H ALT 58 Alkaline Phosphatase 138 H Troponin I 6 6 Cancelled NT-Pro-B Natriuret Pep 37 Total Protein 8.0 Albumin 3.4 Total Cholesterol Lipase 39 Urine Color Urine Clarity Urine pH Ur Specific [place] Urine Protein Urine Ketones Urine Blood Urine Nitrite Urine Bilirubin Urine Urobilinogen Ur Leukocyte Esterase Urine RBC Urine WBC Ur Epithelial Cells Urine Crystals Urine Bacteria Urine Casts Urine Mucus Ur Culture Indicated? Urine Glucose 12/02/24 12/03/24 12/03/24 23:50 00:50 01:00 WBC RBC Hgb Hct MCV MCH MCHC RDW Plt Count MPV Immature Gran % Neutrophils % Lymphocytes % Monocytes % Eosinophils % Basophils % Nucleated RBC % Absolute Neutrophils Absolute Lymphocytes Absolute Monocytes Absolute Eosinophils Absolute Basophils D-Dimer VBG Lactate Sodium Potassium Chloride Carbon Dioxide Anion Gap BUN Creatinine Est GFR (CKD-EPI 2020) Glucose Hemoglobin A1c Calcium Magnesium Total Bilirubin AST ALT Alkaline Phosphatase Troponin I 9 10 NT-Pro-B Natriuret Pep Total Protein Albumin Total Cholesterol Lipase Urine Color Yellow Urine Clarity Cloudy Urine pH 6.0 Ur Specific [place] 1.015 Urine Protein Negative Urine Ketones Negative Urine Blood Trace-intact H Urine Nitrite Negative Urine Bilirubin Negative Urine Urobilinogen 0.2 Ur Leukocyte Esterase Moderate H Urine RBC 0-2 Urine WBC 20-50 H Ur Epithelial Cells Few Urine Crystals Negative Urine Bacteria Packed Urine Casts Negative Urine Mucus Moderate Ur Culture Indicated? Yes Urine Glucose Negative 12/03/24 06:35 WBC 5.17 RBC 4.57 Hgb 12.5 Hct 39.3 MCV 86 MCH 27.4 MCHC 31.8 L RDW 13.3 Plt Count 128 L MPV 10.5 Immature Gran % Neutrophils % Lymphocytes % Monocytes % Eosinophils % Basophils % Nucleated RBC % Absolute Neutrophils Absolute Lymphocytes Absolute Monocytes Absolute Eosinophils Absolute Basophils D-Dimer VBG Lactate Sodium 137 Potassium 3.5 Chloride 102 Carbon Dioxide 26.0 Anion Gap 9.0 BUN 9 Creatinine 0.8 Est GFR (CKD-EPI 2020) 84.30 Glucose 254 H Hemoglobin A1c 10.3 H Calcium 8.6 Magnesium Total Bilirubin 0.7 AST 31 ALT 48 Alkaline Phosphatase 118 H Troponin I 11 NT-Pro-B Natriuret Pep 49 Total Protein 6.5 Albumin 2.8 L Total Cholesterol 166 Lipase Urine Color Urine Clarity Urine pH Ur Specific [place] Urine Protein Urine Ketones Urine Blood Urine Nitrite Urine Bilirubin Urine Urobilinogen Ur Leukocyte Esterase Urine RBC Urine WBC Ur Epithelial Cells Urine Crystals Urine Bacteria Urine Casts Urine Mucus Ur Culture Indicated? Urine Glucose Preliminary micro results at discharge 12/03/24 01:00 Urine - Reflex from Urine Culture - Pending [facility] All Active Problems (Updated 12/03/24 @ 17:24 by Heather Myers APRN) UTI (urinary tract infection) (Acute) Edema (Acute) CVA (cerebral vascular accident) (Chronic) Dyslipidemia (Acute) Diabetes (Chronic) Coronary arteriosclerosis (Acute) Social History Smoking risk assessment performed?: No Housing: house Time Spent with Patient Time Spent with Patient: >85 minutes Time was spent: preparing to see the patient(eg.review tests), obtaining and/or reviewing separately otained hiistory, ordering medications,tests, procedures, referring, communicating with other health director career services, indepentently interpreting results, counseling the patient, care coordination and other
--- NOTE | 2024-12-03 17:12 | PDOC.CMDIS ---
Date of service: 12/03/24 Time of Service: 17:12 Care Management Discharge Plan Reason for Hospitalization: chest pain Discharge Plan: [place] Patient/Family Education Needs: review discharge instructions, limitations, follow up plan and discuss Ask Me Three
--- NOTE | 2024-12-04 07:52 | PT.INNT ---
Date of service: 12/03/24 PT Notes Visit Reasons: Chest Pain PT consult received chart reviewed on 12/03/2024. Patient approached x 2 for evaluation however patient at stress test unable to complete eval will attempt eval on 11/30/2024.
== END 2024-12-03 17:47 | disposition home or self-care (01) ==
LOC: ER 18:02 → MS 22:55
PROVIDERS: Admitting Provider Hospitalist; Emergency Provider Physician Assistant; Responsible Provider Nurse Practitioner Acute Care; Visit Provider Hospitalist
DX: I25.10 Atherosclerotic heart disease of native coronary artery without angina pectoris (principal); R07.89 Other chest pain; E11.9 Type 2 diabetes mellitus without complications; I69.334 Monoplegia of upper limb following cerebral infarction affecting left non-dominant side; E78.00 Pure hypercholesterolemia, unspecified; N39.0 Urinary tract infection, site not specified; R79.1 Abnormal coagulation profile; R60.0 Localized edema; J45.909 Unspecified asthma, uncomplicated; E66.01 Morbid (severe) obesity due to excess calories; Z68.41 Body mass index [BMI] 40.0-44.9, adult
CPT/HCPCS: 00123; 36415; 71275; 78452; 80053; 83690; 85027; 87077; 93005; 99285; J1650; 81003; 81015; 82465; 83036; 83605; 83735; 83880; 84484; 85025; 85379; 87086; 87186; 93010; 93017; 93306; 93970; 99222; 99239; G0378; J2785; J3490